=== PATIENT | female | born 1965 | race Caucasian/White ===

== ENCOUNTER 2018-12-24 22:34 | Inpatient (IN) | payer BC ==
[2018-12-24 23:03] LABS: ADD MAN DIFF? NO
[2018-12-24 23:05] LABS: WHITE BLOOD COUNT 19.2 10^3/ul (4.8-10.8)
[2018-12-24 23:05] LABS: BASOPHIL # 0.1 10^3/ul (0.0-0.1); BASOPHILS % 0.5 % (0.0-2.0); EOSINOPHILS # 0.3 10^3/ul (0.0-0.5); EOSINOPHILS % 1.4 % (0.0-7.0); HEMATOCRIT 47.3 % (37.0-47.0); LYMPHOCYTES # 4.1 10^3/ul (0.8-2.9); LYMPHOCYTES % 21.5 % (15.0-51.0); MEAN CORPUSCULAR HGB CONC 33.8 g/dl (32.0-37.0); MEAN CORPUSCULAR VOLUME 88.7 fl (82.0-101.0); MONOCYTE # 1.3 10^3/ul (0.3-0.9); MONOCYTES % 6.6 % (0.0-11.0); NEUTROPHIL # 13.4 10^3/ul (1.6-7.5); NEUTROPHILS % 69.5 % (39.0-77.0); PLATELET COUNT 344 10^3/UL (140-415); RED BLOOD COUNT 5.33 10^6/ul (4.20-5.40); RED CELL DISTRIBUTION WIDTH 12.2 % (11.5-14.5)
[2018-12-24 23:28] LABS: ALANINE AMINOTRANSFERASE 29 IU/L (13-69); ALBUMIN 3.9 g/dl (3.3-4.9); ALBUMIN/GLOBULIN RATIO 0.86; ALKALINE PHOSPHATASE 172 IU/L (42-121); ANION GAP 11 (5-13); ASPARTATE AMINO TRANSFERASE 37 IU/L (15-46); BILIRUBIN,INDIRECT 0.4 mg/dl (0-1.1); BILIRUBIN,TOTAL 0.4 mg/dl (0.2-1.3); BLOOD UREA NITROGEN 12 mg/dl (7-20); CALCIUM 8.9 mg/dl (8.4-10.2); CARBON DIOXIDE 27 mmol/L (21-31); CHLORIDE 101 mmol/L (97-110); CHOL/HDL RATIO 5.7 RATIO; CHOLESTEROL 225 mg/dl (100-200); CREATININE 0.52 mg/dl (0.44-1.00); Estimated GFR > 60 mL/min (>60); GLUCOSE 285 mg/dl (70-220); HDL CHOLESTEROL 39 mg/dl (37-92); LDL CHOLESTEROL,CALCULATED 151 mg/dl; POTASSIUM 3.2 mmol/L (3.5-5.1); SODIUM 139 mmol/L (135-144); TOTAL PROTEIN 8.4 g/dl (6.1-8.1); TRIGLYCERIDES 175 mg/dl (0-149)
[2018-12-24 23:35] LABS: INR 0.98; PARTIAL THROMBOPLASTIN TIME 26.1 Sec (23.0-35.0); PROTIME 13.1 Sec (11.9-14.9)
[2018-12-24 23:38] LABS: TROPONIN-I < 0.012 ng/ml (0.000-0.120)
[2018-12-24 23:42] LABS: HEMOGLOBIN A1C 10.7 % (0-5.9)
[2018-12-25 00:47] LABS: ADD UMIC YES; UR ASCORBIC ACID NEGATIVE (NEGATIVE); UR BACTERIA FEW /HPF (NONE SEEN); UR BILIRUBIN (Dip) NEGATIVE (NEGATIVE); UR BLOOD (Dip) 1+ mg/dL (NEGATIVE); UR CLARITY CLEAR (CLEAR); UR COLOR YELLOW (YELLOW); UR GLUCOSE (Dip) 3+ mg/dL (NEGATIVE); UR KETONES (Dip) NEGATIVE (NEGATIVE); UR LEUKOCYTE ESTERASE (Dip) 2+ Leu/ul (NEGATIVE); UR NITRITE (Dip) NEGATIVE (NEGATIVE); UR RBC 2 /HPF (0-5); UR SPECIFIC GRAVITY (Dip) 1.005 (1.003-1.030); UR SQUAMOUS EPITHELIAL CELL FEW /HPF (FEW); UR TOTAL PROTEIN (Dip) NEGATIVE (NEGATIVE); UR UROBILINOGEN (Dip) NEGATIVE (NEGATIVE); UR WBC 5 /HPF (0-5)
[2018-12-25] MEDS: IODIXANOL LOCM 100 ML BTL (00:47)
[2018-12-25] MEDS: SOD CHLORIDE 0.9% 100 ML (00:48)
[2018-12-25 00:54] LABS: AMPHETAMINE/METHAMPHETAMINE NEGATIVE (NEGATIVE); BARBITURATES NEGATIVE (NEGATIVE); BENZODIAZEPINES NEGATIVE (NEGATIVE); CANNABINOIDS NEGATIVE (NEGATIVE); COCAINE NEGATIVE (NEGATIVE); OPIATES NEGATIVE (NEGATIVE)
[2018-12-25] MEDS: SODIUM CHLORIDE 0.9% 1L BAG IV* (00:58)
[2018-12-25] MEDS ORDERED: GLUCOSE GEL 15 GRAM TUBE PO ×2 (02:30)
[2018-12-25] MEDS ORDERED: DEXTROSE 50% 50 ML SYRINGE IV ×2 (02:30)
[2018-12-25] MEDS ORDERED: NACL 0.9% 3 ML SYG IV (02:30)
[2018-12-25] MEDS ORDERED: DOCUSATE SODIUM 100 MG CAP PO (02:30)
[2018-12-25] MEDS ORDERED: ONDANSETRON 4 MG INJ IV ×2 (02:30)
[2018-12-25] MEDS ORDERED: ACETAMINOPHEN 325 MG TAB PO (02:30)
[2018-12-25] MEDS ORDERED: BISACODYL (EC) 5 MG TAB PO (02:30)
[2018-12-25] MEDS ORDERED: GLUCAGON 1 MG INJ IM (02:30)
[2018-12-25] MEDS ORDERED: ENALAPRILAT 1.25 MG INJ IV (02:30)
[2018-12-25] MEDS ORDERED: GLUCOSE GEL 15 GRAM TUBE BUCCAL (02:30)
[2018-12-25] MEDS ORDERED: ACCU-CHEK XX (03:00)
[2018-12-25] MEDS ORDERED: INSULIN ASPART [NOVOLOG] 3 ML PEN SC (05:00)
[2018-12-25 06:08] LABS: ADD MAN DIFF? NO
[2018-12-25 06:11] LABS: BASOPHIL # 0.1 10^3/ul (0.0-0.1); BASOPHILS % 0.4 % (0.0-2.0); EOSINOPHILS # 0.3 10^3/ul (0.0-0.5); EOSINOPHILS % 1.9 % (0.0-7.0); HEMATOCRIT 42.5 % (37.0-47.0); HEMOGLOBIN 14.1 g/dl (12.0-16.0); LYMPHOCYTES # 3.6 10^3/ul (0.8-2.9); LYMPHOCYTES % 23.5 % (15.0-51.0); MEAN CORPUSCULAR HEMOGLOBIN 29.8 pg (29.0-33.0); MEAN CORPUSCULAR HGB CONC 33.2 g/dl (32.0-37.0); MEAN CORPUSCULAR VOLUME 89.9 fl (82.0-101.0); MEAN PLATELET VOLUME 10.2 fl (7.4-10.4); MONOCYTE # 1.1 10^3/ul (0.3-0.9); MONOCYTES % 6.9 % (0.0-11.0); NEUTROPHIL # 10.3 10^3/ul (1.6-7.5); NEUTROPHILS % 66.8 % (39.0-77.0); PLATELET COUNT 280 10^3/UL (140-415); RED BLOOD COUNT 4.73 10^6/ul (4.20-5.40); RED CELL DISTRIBUTION WIDTH 12.3 % (11.5-14.5)
[2018-12-25 06:11] LABS: WHITE BLOOD COUNT 15.4 10^3/ul (4.8-10.8)
[2018-12-25 06:35] LABS: ALANINE AMINOTRANSFERASE 28 IU/L (13-69); ALBUMIN/GLOBULIN RATIO 0.76; ALKALINE PHOSPHATASE 129 IU/L (42-121); ANION GAP 6 (5-13); ASPARTATE AMINO TRANSFERASE 28 IU/L (15-46); BILIRUBIN,INDIRECT 0.6 mg/dl (0-1.1); BILIRUBIN,TOTAL 0.6 mg/dl (0.2-1.3); BLOOD UREA NITROGEN 7 mg/dl (7-20); CARBON DIOXIDE 29 mmol/L (21-31); CHLORIDE 107 mmol/L (97-110); CREATININE 0.47 mg/dl (0.44-1.00); Estimated GFR > 60 mL/min (>60); GLUCOSE 180 mg/dl (70-220); MAGNESIUM 1.6 mg/dl (1.7-2.5); POTASSIUM 3.2 mmol/L (3.5-5.1); SODIUM 142 mmol/L (135-144); TOTAL PROTEIN 6.9 g/dl (6.1-8.1)
[2018-12-25] MEDS: POTASSIUM CHLORIDE (SR) 20 MEQ TAB PO (06:43)
[2018-12-25] MEDS: CEFTRIAXONE 1 GM/50 ML (PMX) 50 ML IVPB (06:43)
[2018-12-25] MEDS: ASPIRIN 81 MG TAB PO ×2 (06:44→09:14)
[2018-12-25] MEDS: ATORVASTATIN 80 MG TAB PO (06:44)
[2018-12-25] MEDS: INSULIN LISPRO 100 UNIT/ML VIAL SC (07:00)
[2018-12-25] MEDS ORDERED: LISINOPRIL 20 MG TAB PO (09:00)
[2018-12-25] MEDS: INSULIN ASPART [NOVOLOG] 3 ML PEN SC ×4 (09:11→21:00)
[2018-12-25] MEDS: MAGNESIUM SULFATE 2 GM/50 ML 50 ML IVPB (09:13)
[2018-12-25 12:14] LABS: ERYTHROCYTE SEDIMENTATION RATE 50 mm/Hr (0-30)
[2018-12-25] MEDS: LISINOPRIL 20 MG TAB PO (12:25)
[2018-12-25 14:59] LABS: RAPID PLASMA REAGIN NONREACTIVE (NR)
[2018-12-25] MEDS ORDERED: ENOXAPARIN 40 MG/0.4 ML SYG SC (15:00)
[2018-12-25] MEDS ORDERED: INSULIN GLARGINE [LANTus] (100 UNITS/ML) SYG SC (20:00)
[2018-12-25] MEDS: INSULIN GLARGINE [LANTus] (100 UNITS/ML) SYG SC (23:10)
[2018-12-26] MEDS: ACCU-CHEK XX (01:24)
[2018-12-26] MEDS ORDERED: ACCU-CHEK XX (02:00)
[2018-12-26] MEDS: CEFTRIAXONE 1 GM/50 ML (PMX) 50 ML IVPB (03:44)
[2018-12-26 06:33] LABS: ADD MAN DIFF? NO
[2018-12-26 06:36] LABS: BASOPHIL # 0.1 10^3/ul (0.0-0.1); BASOPHILS % 0.5 % (0.0-2.0); EOSINOPHILS # 0.3 10^3/ul (0.0-0.5); EOSINOPHILS % 2.4 % (0.0-7.0); HEMATOCRIT 42.6 % (37.0-47.0); LYMPHOCYTES # 3.2 10^3/ul (0.8-2.9); LYMPHOCYTES % 22.1 % (15.0-51.0); MEAN CORPUSCULAR HEMOGLOBIN 29.9 pg (29.0-33.0); MEAN CORPUSCULAR HGB CONC 32.9 g/dl (32.0-37.0); MEAN PLATELET VOLUME 10.5 fl (7.4-10.4); MONOCYTES % 6.6 % (0.0-11.0); NEUTROPHIL # 9.8 10^3/ul (1.6-7.5); NEUTROPHILS % 67.8 % (39.0-77.0); PLATELET COUNT 276 10^3/UL (140-415); RED BLOOD COUNT 4.68 10^6/ul (4.20-5.40); RED CELL DISTRIBUTION WIDTH 12.6 % (11.5-14.5)
[2018-12-26 06:36] LABS: WHITE BLOOD COUNT 14.5 10^3/ul (4.8-10.8)
[2018-12-26 07:16] LABS: ALANINE AMINOTRANSFERASE 22 IU/L (13-69); ALBUMIN 3.1 g/dl (3.3-4.9); ALBUMIN/GLOBULIN RATIO 0.77; ALKALINE PHOSPHATASE 130 IU/L (42-121); ANION GAP 4 (5-13); ASPARTATE AMINO TRANSFERASE 30 IU/L (15-46); BILIRUBIN,INDIRECT 0.5 mg/dl (0-1.1); BILIRUBIN,TOTAL 0.5 mg/dl (0.2-1.3); BLOOD UREA NITROGEN 11 mg/dl (7-20); CALCIUM 8.5 mg/dl (8.4-10.2); CARBON DIOXIDE 33 mmol/L (21-31); CHLORIDE 101 mmol/L (97-110); CREATININE 0.55 mg/dl (0.44-1.00); Estimated GFR > 60 mL/min (>60); GLUCOSE 185 mg/dl (70-220); MAGNESIUM 1.9 mg/dl (1.7-2.5); POTASSIUM 3.5 mmol/L (3.5-5.1); SODIUM 138 mmol/L (135-144); TOTAL PROTEIN 7.1 g/dl (6.1-8.1)
[2018-12-26] MEDS: INSULIN ASPART [NOVOLOG] 3 ML PEN SC ×4 (08:27→20:34)
[2018-12-26] MEDS: ASPIRIN 81 MG TAB PO (10:15)
[2018-12-26] MEDS: LISINOPRIL 20 MG TAB PO (10:16)
[2018-12-26] MEDS: metFORMIN 500 MG TAB PO (18:41)
[2018-12-26] MEDS: ATORVASTATIN 80 MG TAB PO (20:26)
[2018-12-26] MEDS: INSULIN GLARGINE [LANTus] (100 UNITS/ML) SYG SC (20:35)
[2018-12-27] MEDS: ACCU-CHEK XX (01:54)
[2018-12-27] MEDS: CEFTRIAXONE 1 GM/50 ML (PMX) 50 ML IVPB (02:48)
[2018-12-27 06:53] LABS: ADD MAN DIFF? NO
[2018-12-27 06:59] LABS: BASOPHIL # 0.1 10^3/ul (0.0-0.1); BASOPHILS % 0.5 % (0.0-2.0); EOSINOPHILS # 0.5 10^3/ul (0.0-0.5); EOSINOPHILS % 2.9 % (0.0-7.0); HEMATOCRIT 44.5 % (37.0-47.0); HEMOGLOBIN 14.7 g/dl (12.0-16.0); LYMPHOCYTES # 3.4 10^3/ul (0.8-2.9); LYMPHOCYTES % 21.4 % (15.0-51.0); MEAN CORPUSCULAR HEMOGLOBIN 30.4 pg (29.0-33.0); MEAN CORPUSCULAR VOLUME 91.9 fl (82.0-101.0); MEAN PLATELET VOLUME 10.5 fl (7.4-10.4); MONOCYTE # 1.1 10^3/ul (0.3-0.9); NEUTROPHIL # 10.8 10^3/ul (1.6-7.5); NEUTROPHILS % 67.4 % (39.0-77.0); PLATELET COUNT 312 10^3/UL (140-415); RED BLOOD COUNT 4.84 10^6/ul (4.20-5.40); RED CELL DISTRIBUTION WIDTH 12.5 % (11.5-14.5)
[2018-12-27 06:59] LABS: WHITE BLOOD COUNT 15.9 10^3/ul (4.8-10.8)
[2018-12-27 07:20] LABS: ALANINE AMINOTRANSFERASE 31 IU/L (13-69); ALBUMIN 3.2 g/dl (3.3-4.9); ALBUMIN/GLOBULIN RATIO 0.76; ALKALINE PHOSPHATASE 133 IU/L (42-121); ANION GAP 4 (5-13); ASPARTATE AMINO TRANSFERASE 34 IU/L (15-46); BILIRUBIN,INDIRECT 0.6 mg/dl (0-1.1); BILIRUBIN,TOTAL 0.6 mg/dl (0.2-1.3); BLOOD UREA NITROGEN 15 mg/dl (7-20); CALCIUM 8.6 mg/dl (8.4-10.2); CARBON DIOXIDE 33 mmol/L (21-31); CHLORIDE 101 mmol/L (97-110); CREATININE 0.56 mg/dl (0.44-1.00); Estimated GFR > 60 mL/min (>60); GLUCOSE 142 mg/dl (70-220); POTASSIUM 3.5 mmol/L (3.5-5.1); SODIUM 138 mmol/L (135-144); TOTAL PROTEIN 7.4 g/dl (6.1-8.1)
[2018-12-27] MEDS: INSULIN ASPART [NOVOLOG] 3 ML PEN SC ×4 (07:52→20:05)
[2018-12-27] MEDS: metFORMIN 500 MG TAB PO ×2 (07:55→18:03)
[2018-12-27] MEDS: ASPIRIN 81 MG TAB PO (09:00)
[2018-12-27] MEDS: ENOXAPARIN 30 MG/0.3 ML SYG SC (09:00)
[2018-12-27] MEDS: LISINOPRIL 20 MG TAB PO (09:00)
[2018-12-27] MEDS: ACETAMINOPHEN 325 MG TAB PO (18:02)
[2018-12-27] MEDS: ATORVASTATIN 80 MG TAB PO (20:05)
[2018-12-27] MEDS: INSULIN GLARGINE [LANTus] (100 UNITS/ML) SYG SC (20:31)
[2018-12-28] MEDS ORDERED: LISINOPRIL 20 MG TAB PO (09:00)
== END 2018-12-27 21:30 | DRG 65 ==
LOC: TEL 12-25 03:46 → E/R 22:34 → TEL 12-25 02:04
DX: I63.9 Cerebral infarction, unspecified (principal); Z68.41 Body mass index [BMI] 40.0-44.9, adult; N39.0 Urinary tract infection, site not specified; E11.8 Type 2 diabetes mellitus with unspecified complications; E66.01 Morbid (severe) obesity due to excess calories; R47.01 Aphasia; Z71.3 Dietary counseling and surveillance; B95.1 Streptococcus, group B, as the cause of diseases classified elsewhere; Z79.4 Long term (current) use of insulin; Z79.82 Long term (current) use of aspirin
CPT/HCPCS: 36415; 70450; 70496; 70498; 70551; 71045; 80053; 80061; 80307; 81001; 82306; 82962; 83036; 83605; 83735; 84443; 84484; 85025; 85610; 85651; 85730; 86592; 87040-91; 87086; 92507; 92523; 92610; 93005; 93306; 93880; 97110; 97116; 97163; 97165; 97530; 99285-25

== ENCOUNTER 2018-12-27 21:50 | Inpatient (IN) | payer BC ==
[2018-12-27] MEDS ORDERED: BISACODYL 10 MG SUPP PR (22:30)
[2018-12-27] MEDS ORDERED: LACTULOSE 30ML CUP PO (22:30)
[2018-12-27] MEDS ORDERED: ACETAMINOPHEN 325 MG TAB PO (22:30)
[2018-12-27] MEDS ORDERED: ENALAPRILAT 1.25 MG INJ IV (22:30)
[2018-12-27] MEDS ORDERED: MAGNESIUM HYDROXIDE 30ML CUP PO (22:30)
[2018-12-27] MEDS ORDERED: PENDING SANTYL ORDER FOR WOUND CARE XX (22:30)
[2018-12-27] MEDS ORDERED: GLUCOSE GEL 15 GRAM TUBE BUCCAL (23:00)
[2018-12-27] MEDS ORDERED: GLUCOSE GEL 15 GRAM TUBE PO ×2 (23:00)
[2018-12-27] MEDS ORDERED: DEXTROSE 50% 50 ML SYRINGE IV ×2 (23:00)
[2018-12-27] MEDS ORDERED: GLUCAGON 1 MG INJ IM (23:00)
[2018-12-27] MEDS ORDERED: NACL 0.9% 3 ML SYG IV (23:30)
[2018-12-28] MEDS: DEXTROSE 5%-0.45% NACL 1,000 ML IV (00:33)
[2018-12-28] MEDS: morphine 2 MG INJ IV ×3 (01:48→20:49)
[2018-12-28] MEDS: ACCU-CHEK XX (02:00)
[2018-12-28 03:00] LABS: ADD UMIC NO; UR ASCORBIC ACID NEGATIVE (NEGATIVE); UR BILIRUBIN (Dip) NEGATIVE (NEGATIVE); UR BLOOD (Dip) NEGATIVE (NEGATIVE); UR CLARITY CLEAR (CLEAR); UR COLOR YELLOW (YELLOW); UR GLUCOSE (Dip) NEGATIVE (NEGATIVE); UR KETONES (Dip) NEGATIVE (NEGATIVE); UR LEUKOCYTE ESTERASE (Dip) NEGATIVE Leu/ul (NEGATIVE); UR NITRITE (Dip) NEGATIVE (NEGATIVE); UR SPECIFIC GRAVITY (Dip) 1.009 (1.003-1.030); UR TOTAL PROTEIN (Dip) NEGATIVE (NEGATIVE); UR UROBILINOGEN (Dip) 1+ mg/dL (NEGATIVE)
[2018-12-28 06:21] LABS: ADD MAN DIFF? NO
[2018-12-28 06:35] LABS: BASOPHIL # 0.1 10^3/ul (0.0-0.1); BASOPHILS % 0.5 % (0.0-2.0); EOSINOPHILS # 0.4 10^3/ul (0.0-0.5); EOSINOPHILS % 2.4 % (0.0-7.0); HEMATOCRIT 44.2 % (37.0-47.0); HEMOGLOBIN 14.9 g/dl (12.0-16.0); LYMPHOCYTES # 3.2 10^3/ul (0.8-2.9); LYMPHOCYTES % 19.8 % (15.0-51.0); MEAN CORPUSCULAR HEMOGLOBIN 30.5 pg (29.0-33.0); MEAN CORPUSCULAR HGB CONC 33.7 g/dl (32.0-37.0); MEAN CORPUSCULAR VOLUME 90.6 fl (82.0-101.0); MEAN PLATELET VOLUME 10.3 fl (7.4-10.4); MONOCYTE # 1.1 10^3/ul (0.3-0.9); MONOCYTES % 6.9 % (0.0-11.0); NEUTROPHIL # 11.3 10^3/ul (1.6-7.5); NEUTROPHILS % 69.5 % (39.0-77.0); PLATELET COUNT 316 10^3/UL (140-415); RED BLOOD COUNT 4.88 10^6/ul (4.20-5.40); RED CELL DISTRIBUTION WIDTH 12.5 % (11.5-14.5)
[2018-12-28 06:35] LABS: WHITE BLOOD COUNT 16.3 10^3/ul (4.8-10.8)
[2018-12-28 07:04] LABS: ALANINE AMINOTRANSFERASE 26 IU/L (13-69); ALBUMIN 3.4 g/dl (3.3-4.9); ALBUMIN/GLOBULIN RATIO 0.85; ALKALINE PHOSPHATASE 121 IU/L (42-121); ANION GAP 7 (5-13); ASPARTATE AMINO TRANSFERASE 35 IU/L (15-46); BILIRUBIN,INDIRECT 0.7 mg/dl (0-1.1); BILIRUBIN,TOTAL 0.7 mg/dl (0.2-1.3); BLOOD UREA NITROGEN 17 mg/dl (7-20); CALCIUM 8.7 mg/dl (8.4-10.2); CARBON DIOXIDE 28 mmol/L (21-31); CHLORIDE 103 mmol/L (97-110); CREATININE 0.55 mg/dl (0.44-1.00); Estimated GFR > 60 mL/min (>60); GLUCOSE 147 mg/dl (70-220); POTASSIUM 3.5 mmol/L (3.5-5.1); SODIUM 138 mmol/L (135-144); TOTAL PROTEIN 7.4 g/dl (6.1-8.1)
[2018-12-28] MEDS: metFORMIN 500 MG TAB PO ×2 (09:07→17:19)
[2018-12-28] MEDS: ENOXAPARIN 30 MG/0.3 ML SYG SC (09:12)
[2018-12-28] MEDS: INSULIN ASPART [NOVOLOG] 3 ML PEN SC ×4 (09:12→20:41)
[2018-12-28] MEDS: DOCUSATE SODIUM 100 MG CAP PO ×2 (09:13→20:38)
[2018-12-28] MEDS: ASPIRIN 81 MG TAB PO (09:13)
[2018-12-28] MEDS: LISINOPRIL 20 MG TAB PO (09:14)
[2018-12-28] MEDS: CEFTRIAXONE 1 GM/50 ML (PMX) 50 ML IVPB (09:17)
[2018-12-28] MEDS: GABAPENTIN 300 MG CAP PO (20:38)
[2018-12-28] MEDS: INSULIN GLARGINE [LANTus] (100 UNITS/ML) SYG SC (20:40)
[2018-12-28] MEDS: BETAMETHASONE/CLOTRIMAZOLE 15 GM CR TOP (20:41)
[2018-12-28] MEDS: ATORVASTATIN 80 MG TAB PO (20:48)
[2018-12-28] MEDS: SENNA TAB PO (20:54)
[2018-12-29] MEDS: ACCU-CHEK XX (02:19)
[2018-12-29] MEDS: metFORMIN 500 MG TAB PO ×2 (07:29→17:23)
[2018-12-29] MEDS: GABAPENTIN 100 MG CAP PO ×2 (07:29→12:00)
[2018-12-29] MEDS: INSULIN ASPART [NOVOLOG] 3 ML PEN SC ×4 (07:29→21:00)
[2018-12-29] MEDS: morphine 2 MG INJ IV ×4 (07:30→22:23)
[2018-12-29] MEDS: ASPIRIN 81 MG TAB PO (08:31)
[2018-12-29] MEDS: DOCUSATE SODIUM 100 MG CAP PO ×3 (08:31→21:00)
[2018-12-29] MEDS: ENOXAPARIN 30 MG/0.3 ML SYG SC (08:32)
[2018-12-29] MEDS: CAPSAICIN 0.025% 60 GM CR TOP ×3 (08:34→21:08)
[2018-12-29] MEDS: CEFTRIAXONE 1 GM/50 ML (PMX) 50 ML IVPB (08:36)
[2018-12-29] MEDS: BETAMETHASONE/CLOTRIMAZOLE 15 GM CR TOP ×2 (08:44→21:07)
[2018-12-29] MEDS: LISINOPRIL 20 MG TAB PO (09:00)
[2018-12-29] MEDS: ERGOCALCIFEROL (8000 UNITS/ML PO SYG) PO (15:08)
[2018-12-29] MEDS: ONDANSETRON 4 MG INJ IV (15:09)
[2018-12-29] MEDS: SENNA TAB PO (21:00)
[2018-12-29] MEDS: INSULIN GLARGINE [LANTus] (100 UNITS/ML) SYG SC (21:06)
[2018-12-29] MEDS: ATORVASTATIN 80 MG TAB PO (21:06)
[2018-12-29] MEDS: GABAPENTIN 300 MG CAP PO (21:06)
[2018-12-30] MEDS: ACCU-CHEK XX (02:00)
[2018-12-30] MEDS: INSULIN ASPART [NOVOLOG] 3 ML PEN SC ×4 (07:35→21:00)
[2018-12-30] MEDS: metFORMIN 500 MG TAB PO ×2 (07:50→17:28)
[2018-12-30] MEDS: GABAPENTIN 100 MG CAP PO ×2 (07:50→11:57)
[2018-12-30] MEDS: LISINOPRIL 20 MG TAB PO (08:32)
[2018-12-30] MEDS: CEFTRIAXONE 1 GM/50 ML (PMX) 50 ML IVPB (08:32)
[2018-12-30] MEDS: ASPIRIN 81 MG TAB PO (08:32)
[2018-12-30] MEDS: ENOXAPARIN 30 MG/0.3 ML SYG SC (08:33)
[2018-12-30] MEDS: BETAMETHASONE/CLOTRIMAZOLE 15 GM CR TOP ×2 (08:34→21:21)
[2018-12-30] MEDS: CAPSAICIN 0.025% 60 GM CR TOP ×3 (08:34→21:22)
[2018-12-30] MEDS: DOCUSATE SODIUM 100 MG CAP PO ×2 (08:36→21:00)
[2018-12-30] MEDS ORDERED: HYDROCODONE/APAP (5/325) TAB PO (15:00)
[2018-12-30] MEDS ORDERED: VANCOMYCIN IV PER PHARMACY XX (15:00)
[2018-12-30] MEDS: VANCOMYCIN HCL 2 GM in SOD CHLORIDE 0.9% 500 ML IVPB (17:28)
[2018-12-30] MEDS: SENNA TAB PO (21:00)
[2018-12-30] MEDS: INSULIN GLARGINE [LANTus] (100 UNITS/ML) SYG SC (21:18)
[2018-12-30] MEDS: HYDROCODONE/APAP (5/325) TAB NGT (21:20)
[2018-12-30] MEDS: MUPIROCIN 2% 22 GM OINT TOP (21:22)
[2018-12-30] MEDS: ATORVASTATIN 80 MG TAB PO (21:23)
[2018-12-30] MEDS: GABAPENTIN 300 MG CAP PO (21:23)
[2018-12-30] MEDS ORDERED: HYDROCORTISONE 0.5% 28.35 GM OINT TOP (22:30)
[2018-12-30] MEDS: HYDROCORTISONE 0.5% 28.35 GM CR TOP (23:00)
[2018-12-31] MEDS: ACCU-CHEK XX (02:00)
[2018-12-31] MEDS ORDERED: VANCOMYCIN 1.25 GM/NS 250 ML 250 ML IVPB (05:00)
[2018-12-31] MEDS: VANCOMYCIN 1.25 GM/NS 250 ML 250 ML IVPB ×2 (05:02→17:25)
[2018-12-31] MEDS: INSULIN ASPART [NOVOLOG] 3 ML PEN SC ×4 (07:35→21:00)
[2018-12-31 07:40] LABS: BLOOD UREA NITROGEN 14 mg/dl (7-20)
[2018-12-31 07:40] LABS: CREATININE 0.64 mg/dl (0.44-1.00)
[2018-12-31] MEDS: GABAPENTIN 100 MG CAP PO ×2 (07:53→11:51)
[2018-12-31] MEDS: metFORMIN 500 MG TAB PO ×2 (07:53→17:33)
[2018-12-31] MEDS: LISINOPRIL 20 MG TAB PO (09:00)
[2018-12-31] MEDS: DOCUSATE SODIUM 100 MG CAP PO ×2 (09:00→21:00)
[2018-12-31] MEDS: MUPIROCIN 2% 22 GM OINT TOP ×2 (10:28→21:23)
[2018-12-31] MEDS: HYDROCORTISONE 0.5% 28.35 GM CR TOP ×2 (10:28→21:23)
[2018-12-31] MEDS: CAPSAICIN 0.025% 60 GM CR TOP ×3 (10:29→21:23)
[2018-12-31] MEDS: BETAMETHASONE/CLOTRIMAZOLE 15 GM CR TOP ×2 (10:29→21:23)
[2018-12-31] MEDS: ASPIRIN 81 MG TAB PO (10:31)
[2018-12-31] MEDS: ENOXAPARIN 30 MG/0.3 ML SYG SC (10:33)
[2018-12-31] MEDS: SENNA TAB PO (21:00)
[2018-12-31] MEDS: ATORVASTATIN 80 MG TAB PO (21:20)
[2018-12-31] MEDS: GABAPENTIN 300 MG CAP PO (21:20)
[2018-12-31] MEDS: INSULIN GLARGINE [LANTus] (100 UNITS/ML) SYG SC (21:31)
[2019-01-01] MEDS: ACCU-CHEK XX (02:00)
[2019-01-01 04:27] LABS: ADD MAN DIFF? NO
[2019-01-01 04:30] LABS: ABNORMAL IP MESSAGE 1; BASOPHIL # 0.1 10^3/ul (0.0-0.1); BASOPHILS % 0.4 % (0.0-2.0); EOSINOPHILS # 0.4 10^3/ul (0.0-0.5); EOSINOPHILS % 2.2 % (0.0-7.0); HEMATOCRIT 45.3 % (37.0-47.0); LYMPHOCYTES % 18.7 % (15.0-51.0); MEAN CORPUSCULAR HEMOGLOBIN 30.4 pg (29.0-33.0); MEAN CORPUSCULAR HGB CONC 33.1 g/dl (32.0-37.0); MEAN CORPUSCULAR VOLUME 91.9 fl (82.0-101.0); MEAN PLATELET VOLUME 10.3 fl (7.4-10.4); MONOCYTE # 1.5 10^3/ul (0.3-0.9); MONOCYTES % 9.3 % (0.0-11.0); NEUTROPHIL # 11.2 10^3/ul (1.6-7.5); NEUTROPHILS % 68.5 % (39.0-77.0); PLATELET COUNT 323 10^3/UL (140-415); RED BLOOD COUNT 4.93 10^6/ul (4.20-5.40); RED CELL DISTRIBUTION WIDTH 12.2 % (11.5-14.5)
[2019-01-01 04:30] LABS: WHITE BLOOD COUNT 16.3 10^3/ul (4.8-10.8)
[2019-01-01 04:34] LABS: POSITIVE DIFF @See below
[2019-01-01] MEDS: HYDROCODONE/APAP (5/325) TAB NGT (05:04)
[2019-01-01] MEDS: VANCOMYCIN 1.25 GM/NS 250 ML 250 ML IVPB ×2 (05:07→16:59)
[2019-01-01] MEDS: INSULIN ASPART [NOVOLOG] 3 ML PEN SC ×4 (07:35→21:00)
[2019-01-01] MEDS: metFORMIN 500 MG TAB PO ×2 (07:46→17:04)
[2019-01-01] MEDS: GABAPENTIN 100 MG CAP PO ×2 (07:47→11:47)
[2019-01-01] MEDS: ASPIRIN 81 MG TAB PO (08:53)
[2019-01-01] MEDS: ENOXAPARIN 30 MG/0.3 ML SYG SC (08:53)
[2019-01-01] MEDS: DOCUSATE SODIUM 100 MG CAP PO ×2 (08:53→21:04)
[2019-01-01] MEDS: CAPSAICIN 0.025% 60 GM CR TOP ×3 (08:54→21:16)
[2019-01-01] MEDS: HYDROCORTISONE 0.5% 28.35 GM CR TOP ×2 (08:54→21:16)
[2019-01-01] MEDS: BETAMETHASONE/CLOTRIMAZOLE 15 GM CR TOP ×2 (08:54→21:16)
[2019-01-01] MEDS: LISINOPRIL 20 MG TAB PO (08:55)
[2019-01-01] MEDS: MUPIROCIN 2% 22 GM OINT TOP ×2 (08:55→21:16)
[2019-01-01] MEDS: GABAPENTIN 300 MG CAP PO (21:04)
[2019-01-01] MEDS: ATORVASTATIN 80 MG TAB PO (21:04)
[2019-01-01] MEDS: SENNA TAB PO (21:04)
[2019-01-01] MEDS: INSULIN GLARGINE [LANTus] (100 UNITS/ML) SYG SC (21:11)
[2019-01-02] MEDS: ACCU-CHEK XX (01:35)
[2019-01-02] MEDS: VANCOMYCIN 1.25 GM/NS 250 ML 250 ML IVPB ×2 (05:32→16:28)
[2019-01-02] MEDS: INSULIN ASPART [NOVOLOG] 3 ML PEN SC ×4 (07:35→21:00)
[2019-01-02] MEDS: metFORMIN 500 MG TAB PO ×2 (08:38→17:22)
[2019-01-02] MEDS: GABAPENTIN 100 MG CAP PO ×2 (08:38→11:46)
[2019-01-02] MEDS: HYDROCORTISONE 0.5% 28.35 GM CR TOP ×2 (08:43→21:37)
[2019-01-02] MEDS: BETAMETHASONE/CLOTRIMAZOLE 15 GM CR TOP ×2 (08:43→21:39)
[2019-01-02] MEDS: MUPIROCIN 2% 22 GM OINT TOP ×2 (08:43→21:37)
[2019-01-02] MEDS: DOCUSATE SODIUM 100 MG CAP PO ×2 (09:00→21:00)
[2019-01-02] MEDS: LISINOPRIL 20 MG TAB PO (11:07)
[2019-01-02] MEDS: ASPIRIN 81 MG TAB PO (11:08)
[2019-01-02] MEDS: CAPSAICIN 0.025% 60 GM CR TOP ×3 (11:10→21:39)
[2019-01-02] MEDS: ENOXAPARIN 30 MG/0.3 ML SYG SC (11:11)
[2019-01-02] MEDS: SENNA TAB PO (21:00)
[2019-01-02] MEDS: ATORVASTATIN 80 MG TAB PO (21:35)
[2019-01-02] MEDS: GABAPENTIN 300 MG CAP PO (21:35)
[2019-01-02] MEDS: INSULIN GLARGINE [LANTus] (100 UNITS/ML) SYG SC (21:41)
[2019-01-03] MEDS: ACCU-CHEK XX (02:00)
[2019-01-03] MEDS: HYDROCODONE/APAP (5/325) TAB NGT ×2 (02:08→22:33)
[2019-01-03] MEDS: VANCOMYCIN 1.25 GM/NS 250 ML 250 ML IVPB (04:37)
[2019-01-03] MEDS: INSULIN ASPART [NOVOLOG] 3 ML PEN SC ×4 (07:35→20:56)
[2019-01-03] MEDS: metFORMIN 500 MG TAB PO ×2 (07:46→17:27)
[2019-01-03] MEDS: GABAPENTIN 100 MG CAP PO ×2 (07:46→11:48)
[2019-01-03] MEDS: LISINOPRIL 20 MG TAB PO (08:05)
[2019-01-03 08:20] LABS: BLOOD UREA NITROGEN 14 mg/dl (7-20)
[2019-01-03] MEDS: DOCUSATE SODIUM 100 MG CAP PO ×3 (09:00→20:55)
[2019-01-03] MEDS: ASPIRIN 81 MG TAB PO (10:28)
[2019-01-03] MEDS: ENOXAPARIN 30 MG/0.3 ML SYG SC (10:29)
[2019-01-03] MEDS: MUPIROCIN 2% 22 GM OINT TOP ×2 (10:29→21:00)
[2019-01-03] MEDS: HYDROCORTISONE 0.5% 28.35 GM CR TOP ×2 (10:30→21:00)
[2019-01-03] MEDS: CAPSAICIN 0.025% 60 GM CR TOP ×3 (10:30→21:00)
[2019-01-03] MEDS: BETAMETHASONE/CLOTRIMAZOLE 15 GM CR TOP ×2 (10:30→21:01)
[2019-01-03] MEDS ORDERED: SOD CHLORIDE 0.9% 250 ML IV (13:30)
[2019-01-03] MEDS: CEPHALEXIN 500 MG CAP PO (17:27)
[2019-01-03] MEDS: SOD CHLORIDE 0.9% 250 ML IV* (17:48)
[2019-01-03] MEDS: ATORVASTATIN 80 MG TAB PO (20:55)
[2019-01-03] MEDS: SENNA TAB PO (20:55)
[2019-01-03] MEDS: GABAPENTIN 300 MG CAP PO (20:55)
[2019-01-03] MEDS: INSULIN GLARGINE [LANTus] (100 UNITS/ML) SYG SC (21:04)
[2019-01-04] MEDS: CEPHALEXIN 500 MG CAP PO ×4 (00:24→17:10)
[2019-01-04] MEDS: ACCU-CHEK XX (02:00)
[2019-01-04] MEDS: INSULIN ASPART [NOVOLOG] 3 ML PEN SC ×4 (07:35→21:00)
[2019-01-04] MEDS: GABAPENTIN 100 MG CAP PO ×2 (08:01→11:55)
[2019-01-04] MEDS: metFORMIN 500 MG TAB PO ×2 (08:02→17:10)
[2019-01-04] MEDS: DOCUSATE SODIUM 100 MG CAP PO ×2 (09:00→21:00)
[2019-01-04] MEDS: ASPIRIN 81 MG TAB PO (09:02)
[2019-01-04] MEDS: LISINOPRIL 20 MG TAB PO (09:05)
[2019-01-04] MEDS: ENOXAPARIN 30 MG/0.3 ML SYG SC (09:06)
[2019-01-04] MEDS: CAPSAICIN 0.025% 60 GM CR TOP ×3 (09:06→21:08)
[2019-01-04] MEDS: HYDROCORTISONE 0.5% 28.35 GM CR TOP ×2 (09:06→21:08)
[2019-01-04] MEDS: BETAMETHASONE/CLOTRIMAZOLE 15 GM CR TOP ×2 (09:06→21:08)
[2019-01-04] MEDS: MUPIROCIN 2% 22 GM OINT TOP ×2 (09:06→21:08)
[2019-01-04] MEDS: SENNA TAB PO (21:00)
[2019-01-04] MEDS: ATORVASTATIN 80 MG TAB PO (21:04)
[2019-01-04] MEDS: GABAPENTIN 400 MG CAP PO (21:04)
[2019-01-05] MEDS: CEPHALEXIN 500 MG CAP PO ×5 (00:33→23:20)
[2019-01-05] MEDS: ACCU-CHEK XX (02:00)
[2019-01-05] MEDS: HYDROCODONE/APAP (5/325) TAB NGT ×2 (02:33→23:20)
[2019-01-05] MEDS: glipiZIDE 5 MG TAB PO (07:05)
[2019-01-05] MEDS: INSULIN ASPART [NOVOLOG] 3 ML PEN SC ×4 (07:35→20:16)
[2019-01-05] MEDS: GABAPENTIN 100 MG CAP PO ×2 (07:45→12:00)
[2019-01-05] MEDS: metFORMIN 500 MG TAB PO ×2 (07:45→17:33)
[2019-01-05] MEDS: ENOXAPARIN 30 MG/0.3 ML SYG SC (08:11)
[2019-01-05] MEDS: DOCUSATE SODIUM 100 MG CAP PO ×2 (08:12→20:09)
[2019-01-05] MEDS: LISINOPRIL 20 MG TAB PO (08:12)
[2019-01-05] MEDS: ASPIRIN 81 MG TAB PO (08:12)
[2019-01-05] MEDS: MUPIROCIN 2% 22 GM OINT TOP ×2 (08:13→20:11)
[2019-01-05] MEDS: BETAMETHASONE/CLOTRIMAZOLE 15 GM CR TOP ×2 (08:13→20:10)
[2019-01-05] MEDS: HYDROCORTISONE 0.5% 28.35 GM CR TOP ×2 (08:13→20:11)
[2019-01-05] MEDS: CAPSAICIN 0.025% 60 GM CR TOP ×3 (08:13→20:14)
[2019-01-05] MEDS: ATORVASTATIN 80 MG TAB PO (20:09)
[2019-01-05] MEDS: GABAPENTIN 400 MG CAP PO (20:09)
[2019-01-05] MEDS: SENNA TAB PO (20:16)
[2019-01-06] MEDS: ACCU-CHEK XX (00:58)
[2019-01-06] MEDS: CEPHALEXIN 500 MG CAP PO ×4 (05:10→23:56)
[2019-01-06] MEDS: INSULIN ASPART [NOVOLOG] 3 ML PEN SC ×4 (07:35→21:00)
[2019-01-06] MEDS: metFORMIN 500 MG TAB PO (08:26)
[2019-01-06] MEDS: GABAPENTIN 100 MG CAP PO ×2 (08:27→12:03)
[2019-01-06] MEDS: glipiZIDE 5 MG TAB PO (08:27)
[2019-01-06] MEDS: LISINOPRIL 20 MG TAB PO (09:00)
[2019-01-06] MEDS: DOCUSATE SODIUM 100 MG CAP PO ×2 (10:50→21:00)
[2019-01-06] MEDS: ASPIRIN 81 MG TAB PO (10:50)
[2019-01-06] MEDS: ENOXAPARIN 30 MG/0.3 ML SYG SC (10:51)
[2019-01-06] MEDS: MUPIROCIN 2% 22 GM OINT TOP ×2 (10:52→21:05)
[2019-01-06] MEDS: HYDROCORTISONE 0.5% 28.35 GM CR TOP ×2 (10:53→21:00)
[2019-01-06] MEDS: BETAMETHASONE/CLOTRIMAZOLE 15 GM CR TOP ×2 (10:53→21:07)
[2019-01-06] MEDS: CAPSAICIN 0.025% 60 GM CR TOP ×3 (10:54→21:07)
[2019-01-06] MEDS: SENNA TAB PO (21:00)
[2019-01-06] MEDS: ATORVASTATIN 80 MG TAB PO (21:02)
[2019-01-06] MEDS: GABAPENTIN 400 MG CAP PO (21:02)
[2019-01-07] MEDS: HYDROCODONE/APAP (5/325) TAB NGT (00:31)
[2019-01-07] MEDS: ACCU-CHEK XX (02:00)
[2019-01-07] MEDS: CEPHALEXIN 500 MG CAP PO (06:33)
[2019-01-07] MEDS: INSULIN ASPART [NOVOLOG] 3 ML PEN SC (07:35)
[2019-01-07] MEDS: GABAPENTIN 100 MG CAP PO ×2 (07:45→11:03)
[2019-01-07] MEDS: glipiZIDE 5 MG TAB PO (07:45)
[2019-01-07] MEDS: ASPIRIN 81 MG TAB PO (08:39)
[2019-01-07] MEDS: ENOXAPARIN 30 MG/0.3 ML SYG SC (08:40)
[2019-01-07] MEDS: DOCUSATE SODIUM 100 MG CAP PO (08:41)
[2019-01-07] MEDS: HYDROCORTISONE 0.5% 28.35 GM CR TOP (08:43)
[2019-01-07] MEDS: MUPIROCIN 2% 22 GM OINT TOP (08:43)
[2019-01-07] MEDS: BETAMETHASONE/CLOTRIMAZOLE 15 GM CR TOP (08:44)
[2019-01-07] MEDS: CAPSAICIN 0.025% 60 GM CR TOP (08:44)
[2019-01-07] MEDS: metFORMIN 500 MG TAB PO (11:03)
== END 2019-01-07 11:40 | disposition home health service (06) | DRG 57 ==
LOC: VRC 21:50
DX: I69.351 Hemiplegia and hemiparesis following cerebral infarction affecting right dominant side (principal); L03.114 Cellulitis of left upper limb; N39.0 Urinary tract infection, site not specified; L02.414 Cutaneous abscess of left upper limb; I69.320 Aphasia following cerebral infarction; E87.6 Hypokalemia; E11.9 Type 2 diabetes mellitus without complications; I10 Essential (primary) hypertension; E78.5 Hyperlipidemia, unspecified; F17.200 Nicotine dependence, unspecified, uncomplicated; E66.9 Obesity, unspecified; Z68.30 Body mass index [BMI] 30.0-30.9, adult; E55.9 Vitamin D deficiency, unspecified; Z72.0 Tobacco use
CPT/HCPCS: 72148; 80053; 80202; 81003; 82565; 82962; 84520; 85025; 87070; 87081; 87086; 92507; 92523; 92526; 92610; 97110; 97112; 97116; 97163; 97167; 97530; 97535; 97542